=== PATIENT | male | born 1960 | race Caucasian/White ===

== ENCOUNTER → 2023-06-23 | Outpatient (CLI) | payer OTHER, SELFPAY ==
[2023-06-23 14:23] LABS: PSA,Total - Annual Screen 5.06 ng/mL (0.00-4.00)
== END | disposition home or self-care (01) ==
PROVIDERS: PCP Family Medicine; Referring Provider Nurse Practitioner; Visit Provider Nurse Practitioner
DX: Z12.5 Encounter for screening for malignant neoplasm of prostate (principal)
CPT/HCPCS: 36415; 84153; G0103

== ENCOUNTER → 2023-06-29 | Outpatient (CLI) | payer SELFPAY ==
--- NOTE | 2023-06-29 17:02 | CT_ITS ---
STUDY: CT ABDOMEN AND PELVIS WITH AND WITHOUT CONTRAST REASON FOR EXAM: Male, 63 years old. GROSS HEMATURIA over the past 3 months. RADIATION DOSAGE (If Supplied By Facility): CTDIvol = ( 21.72 ) mGy, DLP = ( 3237.52 ) mGycm TECHNIQUE: Transaxial images were obtained from the dome of the diaphragm to the symphysis pubis without oral contrast. IV 100mL Isovue-370 was administered. Sagittal and coronal images were reconstructed. Individualized dose optimization techniques were used for this CT. COMPARISON: None. FINDINGS: Minimal degree of the bibasilar atelectasis. The visualized portions of the heart are within normal limits. There is decreased attenuation of the liver consistent with steatosis. There is a 2.7 cm x 3 cm hypodensity within the peripheral enhancement and filling in suggestive of a hepatic hemangioma. This is in the medial aspect of the left lobe of the liver. Normal gallbladder and extrahepatic biliary system. Normal spleen. Normal pancreas. Normal bilateral adrenal glands. Punctate calculus in the lower pole calyx of the right kidney. Normal left kidney. Calcific plaque is seen in the intrarenal branches of the left kidney. This punctate calculus in the midpole calyx of the left kidney. There is a small hiatal hernia. Normal small intestine. There are multiple colonic diverticula consistent with diverticulosis. The appendix is visualized and appears normal. Normal abdominal aorta. Normal inferior vena cava. Normal retroperitoneum. Diffuse bladder wall thickening although the bladder is not completely distended. There is enlargement of the prostate gland. The prostate measures 5.1 cm x 6.5 cm. This causes indentation of the bladder base. Dense prosthetic calcifications are seen. There is a small umbilical hernia containing fat. There are mild degenerative changes of the visualized lumbar spine. CT/CT Abd/Pelvis W/WO Contrast IMPRESSION: Prostatic enlargement with indentation of the bladder base. Heterogeneous appearance of the prostate with dense calcifications. Fatty infiltration of the liver. Findings suggestive of a hemangioma and the medial aspect of the left lobe of the liver. Nonobstructive punctate bilateral intrarenal calculi. Electronically Signed: Chip Sweeney MD at 10:42 EST ,
[2023-06-29 17:24] LABS: CREATININE FINGERSTICK 1.1 mg/dL (0.70-1.30); EGFR FINGERSTICK > 60.0000 mL/min (>60)
--- OUTSIDE RECORDS SUMMARY | 2023-06-29 20:04 | XMS RPT_ITS | CCD ---
Author Name Unknown Address [address] [place] [address] Organization [facility] Care Team Providers Care Vp Mobile [employer] Name Role Phone Shaun, Vinod Unavailable Shaun, Vinod L Unavailable Unavailable Goodwin, Hector A Unavailable Unavailable Goodwin, Hector A Unavailable Unavailable Goodwin, Hector A Unavailable Unavailable Goodwin, Hector A Unavailable Unavailable Shaun, Vinod L Unavailable Unavailable Shaun, Vinod L Unavailable Unavailable Goodwin, Hector A Unavailable Unavailable Goodwin, Hector A Unavailable Unavailable Goodwin, Hector A Unavailable Unavailable Goodwin, Hector A Unavailable Unavailable Goodwin, Hector A Unavailable Unavailable Goodwin, Hector A Unavailable Unavailable Shaun, Vinod Primary Care Provider RADHA JO Attending Unavailable SHAUN, VINOD Primary Care Unavailable GOODWINHECTOR Attending Unavailable SHAUN, VINOD Primary Care Unavailable RADHA JO Admitting Unavailable RADHA JO Referring Unavailable SHAUN, VINOD Primary Care Unavailable JOSS RAPP Attending Unavailable SHAUN, VINOD Primary Care Unavailable GOODWINHECTOR Attending Unavailable SHAUN, VINOD Primary Care Unavailable GOODWINHECTOR Attending Unavailable SHAUN, VINOD Primary Care Unavailable GOODWINHECTOR Attending Unavailable SHAUN, VINOD Primary Care Unavailable GOODWINHECTOR Attending Unavailable SHAUN, VINOD Primary Care Unavailable GOODWINHECTOR Attending Unavailable SHAUN, VINOD Primary Care Unavailable GOODWINHECTOR Attending Unavailable SHAUN, VINOD Primary Care Unavailable Allergies Allergy Classification Reported Allergen(s) Allergy Type Date of Onset Reaction(s) Facility (1 source) No Known Medication Allergies; Translations: [No Known Medication Allergies] Propensity to adverse reactions to drug (disorder) [facility] Repository Medications Current Medications Medication Drug Class(es) Dates Sig (Normalized) Sig (Original) aspirin 81 mg delayed release oral tablet (12 sources) Nonsteroidal Anti-inflammatory Drug take 1 tablet by mouth once daily aspirin 81 MG EC tablet Take 81 mg by mouth daily. 0 Active atenolol 50 mg oral tablet (2 sources) beta-Adrenergic Consuelo Start: 08-09-2019 take 1 tablet by mouth once daily atenoloL (TENORMIN) 50 MG tablet Take 50 mg by mouth daily . 0 08/09/2019 Active atorvastatin 80 mg oral tablet (19 sources) HMG-CoA Reductase Inhibitor Start: 05-04-2017 atorvastatin (LIPITOR) 80 MG tablet Take 40 mg by mouth daily. 5 05/04/2017 Active doxazosin 2 mg oral tablet (19 sources) alpha-Adrenergic Consuelo Start: 04-28-2018 take 1 tablet by mouth once daily doxazosin (CARDURA) 2 MG tablet Take 2 mg by mouth nightly . 11 04/28/2018 Active Completed/Discontinued Medications Medication Drug Class(es) Dates Sig (Normalized) Sig (Original) acetaminophen 325 mg / oxyCODONE hydrochloride 5 mg oral tablet (4 sources) Opioid Agonist Start: 08-10-2017 End: 10-21-2017 take 1-2 mg by mouth every four hours as needed for pain oxyCODONE-acetami nophen (PERCOCET) 5-325 mg per tablet Indications: Traumatic tear of right rotator cuff, sequela 1-2 po q 4 hours prn post op pain Dx:s46.011s. 40 tablet 0 08/10/2017 10/21/2017 Discontinued amLODIPine 5 mg oral tablet (13 sources) Dihydropyridine Calcium Channel Consuelo Start: 04-07-2017 End: 06-21-2019 take 1 tablet by mouth once daily amLODIPine (NORVASC) 5 MG tablet Take 5 mg by mouth daily. 11 04/07/2017 06/21/2019 Discontinued (Discontinued by another clinician) pioglitazone (1 source) Peroxisome Proliferator Receptor alpha Agonist, Peroxisome Proliferator Receptor gamma Agonist, Thiazolidinedione End: 05-18-2017 PIOGLITAZONE HCL (ACTOS ORAL) Take by mouth. 05/18/2017 Discontinued Problems Active Problems Problem Classification Problem Date Documented Da te Episodic/Chronic Other connective tissue disease (5 sources) Tear of left rotator cuff; Translations: [Tear of left rotator cuff, unspecified tear extent, unspecified whether traumatic] Other nervous system disorders (20 sources) Ulnar neuropathy; Translations: [Carpal tunnel syndrome, right upper limb] Onset: 07-14-2017 07-14-2017 Chronic Other nervous system disorders (7 sources) Carpal tunnel syndrome of right wrist; Translations: [Carpal tunnel syndrome on right] Onset: 07-14-2017 07-14-2017 Other non-traumatic joint disorders (1 source) Shoulder pain; Translations: [Left shoulder pain, unspecified chronicity] Episodic Past or Other Problems Problem Classification Problem Date Documented Date Episodic/Chronic Joint disorders and dislocations; trauma-related (19 sources) Anterior dislocation of shoulder joint; Translations: [Anterior shoulder dislocation, right, subsequent encounter] Onset: 05-18-2017 05-18-2017 Episodic Other connective tissue disease (19 sources) Bursitis; Translations: [Bursitis] Onset: 05-18-2017 05-18-2017 Episodic Unclassified (14 sources) History of repair of musculotendinous cuff of shoulder; Translations: [S/P right rotator cuff repair] Onset: 08-18-2017 08-18-2017 Episodic Results Test Name Value Interpretation Reference Range Facil ity Vital Signs Date Time Vital Sign Value Performing Clinician Faci lity 06-21-2019 10:10-0500 BMI (Body Mass Index) 29.43 kg/m2 [facility] 06-21-2019 10:10-0500 Body weight 98.43 kg [facility] 06-21-2019 10:10-0500 Height 182.9 cm [facility] 06-08-2017 14:34-0500 BMI (Body Mass Index) 29.43 kg/m2 Hectorkimberlee Goodwin [facility] Work Phone: 06-08-2017 14:34-0500 Height 182.9 cm Hectorkimberlee Goodwin [facility] Work Phone: 06-08-2017 14:34-0500 Weight 98.43 kg Hectorkimberlee Goodwin [facility] Work Phone: 05-18-2017 15:06-0500 BMI (Body Mass Index) 29.43 kg/m2 Hectorkimberlee Goodwin [facility] Work Phone: 05-18-2017 15:06-0500 Height 182.9 cm Hector Goodwin [facility] Work Phone: 05-18-2017 15:06-0500 Weight 98.43 kg Hector Goodwin [facility] Work Phone: Encounters Encounter Date Encounter Type Care Provider Facility Start: 10-26-2019 End: 10-26-2019 Patient encounter procedure HECTOR GOODWIN [facility] Start: 09-05-2019 End: 09-05-2019 Patient encounter procedure HECTOR GOODWIN [facility] Start: 09-05-2019 End: 09-05-2019 Postop follow up visit related to original px Hector Goodwin Work Phone: [facility] Plan of Treatment Date Care Activity Detail Author Start: 04-12-2027 Tetanus vaccination [facility] Start: 10-17-2019 End: 10-17-2019 Follow-Up 10/17/2019 Follow-Up Sports Hector Orozco [place] [address] [phone] [facility] Start: 09-05-2019 End: 09-05-2019 Follow-Up 09/05/2019 Follow-Up Hector Koenig [place] [address] [phone] [facility] Start: 08-15-2019 End: 08-15-2019 Follow-Up 08/15/2019 Follow-Up Sports [place] [address] [phone] [facility] Start: 08-03-2019 End: 08-03-2019 Follow-Up 08/03/2019 Follow-Up [place]ector [place] [address] [phone] [facility] Start: 01-22-2019 Influenza vaccination given SEQUENTIAL INFLUENZA VACCINE (#1) [facility] Start: 05-31-2018 End: 05-31-2018 Ambulatory 05/31/2018 Office Visit Hector Koenig MD [address] [place] [address] [phone] [facility] Start: 01-22-2018 Influenza vaccination [facility] Start: 12-21-2017 End: 12-21-2017 Ambulatory 12/21/2017 Office Visit Hector Koenig MD [address] [place] [address] [phone] [facility] Start: 10-14-2017 End: 10-14-2017 Ambulatory 10/14/2017 Follow-Up Hector Koenig MD [address] [place] [address] [phone] [facility] Start: 09-16-2017 Ambulatory 09/16/2017 Hospital Encounter Hector Goodwin MD [address] [place] [address] [facility] Start: 09-14-2017 End: 09-14-2017 Ambulatory 09/14/2017 Follow-Up Hector Koenig MD [address] [place] [address] [phone] [facility] Start: 09-07-2017 Ambulatory 09/07/2017 Follow-Up Hector Koenig MD [address] [place], [place] [address] [address] [facility] Start: 08-03-2017 Ambulatory 08/03/2017 Surgical Consult [place]ector [place] [address] [facility] Start: 07-27-2017 End: 06-29-2018 EMG: EMG: Routine Nerve palsy Expected: 07/27/2017, Expires: 06/29/[address] [facility] Work Phone: Start: 07-27-2017 End: 06-29-2018 MR Shoulder Right Without Contrast MR Shoulder Right Without Contrast Routine Anterior shoulder dislocation, right, subsequent encounter Expected: 07/27/2017, Expires: 06/29/[address] [facility] Work Phone: Start: 07-20-2017 Ambulatory 07/20/2017 Office Visit Sports Medicine Hector Goodwin MD [address] [place] [address] [phone] [facility] Start: 06-29-2017 Ambulatory 06/29/2017 Office Visit Sports Medicine Hector Goodwin MD [address] [place] [address] [phone] [facility] Start: 06-08-2017 Ambulatory 06/08/2017 Office Visit Sports Medicine [place] [address] [phone] [facility] Start: 01-22-2017 Influenza vaccination SEQUENTIAL INFLUENZA VACCINE (#1) [facility] Work Phone: Start: 2010 Administration of herpes zoster vaccine Zoster Vaccines (1 of 2) [facility] Start: 1963 History and physical examination, annual for health maintenance Wellness Visit [facility] Start: 1960 Depression screening using PHQ-9 (Patient Health Questionnaire 9) score DEPRESSION SCREENING (PHQ9) [facility] Start: 1960 Hepatitis C antibody, confirmatory test HEPATITIS C SCREENING [facility] Start: 1960 HEPATITIS C SCREENING HEPATITIS C SCREENING [facility] Work Phone: Start: 1960 Prostate specific antigen measurement PSA Level [facility] Start: 1960 Screening colonoscopy COLONOSCOPY [facility] Work Phone: Start: 1960 Screening for malignant neoplasm of colon Colorectal Cancer Screening: Colonoscopy [facility] Start: 1960 Tetanus vaccination TETANUS EVERY [address] [facility] Work Phone: Joint Injection/Arthrocentesis Joint Injection/Arthrocentes is Routine Bursitis of other bursa of right knee 05/18/2017 4:56 PM EST [facility] Work Phone: End: 06-21-2020 MR Shoulder Left Without Contrast MR Shoulder Left Without Contrast Imaging Routine Tear of left rotator cuff, unspecified tear extent, unspecified whether traumatic 1 Occurrences starting 06/21/2019 until 06/21/2020 [employer] Payers Date Payer Category Payer Self-pay 2017 Unknown 1960 Unknown [id number] 2.16. [id number] 1960 Unknown [id number] 2.16. [id number] 1960 Unknown [id number] 2.16. [id number] 1960 Unknown [id number] 2.16. [id number] 1960 Unknown [id number] 2.16. [id number] 1960 Unknown [id number] 2.16. [id number] 1960 Unknown [id number] 2.16. [id number] 1960 Unknown [id number] 2.16. [id number] 1960 Unknown [id number] 2.16. [id number] 1960 Unknown [id number] 2.16. [id number] Self-pay [id number] Social History Date Type Detail Facility Start: 10-21-2017 End: 09-05-2019 Tobacco smoking status NHIS Never smoker [facility] Work Phone: Sex Assigned At Not on file [place] [facility] Work Phone: Start: 06-21-2019 End: 09-05-2019 Alcohol intake Ex-drinker (finding) [facility] Exposure to SARS-CoV -2 (event) Unable to assess [facility] Assessments Diagnosis S/P right rotator cuff repai r - Primary Diagnosis S/P right rotator cuff repai r - Primary Diagnosis ERRONEOUS ENCOUNTER--DISREGA RD - Primary Pre-op testing Unspecified pre-operative examination Traumatic rotator cuff tear, right, sequela Diagnosis S/P right rotator cuff repai r - Primary Diagnosis Anterior shoulder dislocatio n, right, subsequent encounter - Primary Nerve palsy Bursitis of other bursa of r ight knee Traumatic rotator cuff tear, right, sequela Diagnosis Ulnar neuropathy at elbow, r ight - Primary Nerve palsy Carpal tunnel syndrome on ri ght Carpal tunnel syndrome Diagnosis Anterior shoulder dislocatio n, right, subsequent encounter - Primary Nerve palsy Diagnosis Bursitis of other bursa of r ight knee - Primary Anterior shoulder dislocatio n, right, subsequent encounter Diagnosis Bursitis of other bursa of r ight knee - Primary Anterior shoulder dislocatio n, right, subsequent encounter Diagnosis S/P right rotator cuff repai r - Primary Diagnosis Tear of left rotator cuff, unspecified tear extent, unspecified whether traumatic Diagnosis Tear of left rotator cuff, unspecified tear extent, unspecified whether traumatic Diagnosis Left shoulder pain, unspecified chronicity Summary Purpose Family History No Family History Records FoundNo Family History Records FoundNo Family History Records FoundNo Family History Records Found Advance Directives No Advanced Directives Records FoundDocuments on File Type Date Recorded Patient Wrapper Opener Expl anation Advance Directives and Living Will Documents on File Type Date Recorded Patient Wrapper Opener Expl anation Advance Directives and Living Will Reason for Referral Status Reason Specialty Diagnoses / Procedures Referred By Contact Referred To Contact Pending Review Diagnoses Tear of left rotator cuff, unspecified tear extent, unspecified whether traumatic Procedures MR Shoulder Left Without Contrast Hector Goodwin MD [address] [place] [address] History of Present Illness * Hector Goodwin MD - 06/21/2019 2:35 PM EST Dictation on: 06/21/2019 2:38 PM by: HECTOR GOODWIN [[id number]] documented in this encounter* Hector Goodwin MD - 06/29/2019 10:07 AM EST Peña is seen for followup of his left shoulder pain and injury. He had fallen 6 months ago. Does not report having much pain before that. Has been fully active. He has had his MRI. On exam, he has full range of motion of his left shoulder with marked pain. X-rays were obtained last visit. As I review his MRI, he has had a massive rotator cuff tear with retraction. He has a subscapularis muscle tear and tendon avulsion from the lesser tuberosity with dislocation of the biceps. IMPRESSION Massive tear, left rotator cuff tendon, with superior migration of the humeral head, supraspinatus tendon, infraspinatus, and subscapularis all involved. PLAN I have discussed the options with him and explained to him that this may very well not be repairable. He just feels like he has to do something. He does not want a steroid injection. He is only 59. Ihave decided at this point in time, it would be reasonable to perform arthroscopy. I told him if itjust did not look like there is anything I could repair, we would just performed debridement. If tissues are repairable, it would be a large open repair with subscapularis, biceps, and supraspinatus and infraspinatus repair attempts. With this shoulder and his surgery like this, the results of healing of his repair would be 50% or less. Debridement, of course, would not give long-term stability, but may help his symptoms and at any rate, reverse shoulder replacements would probably be the ultimate procedure. He seems to understand this and has consented. PAST HISTORY He has had hypertension. ALLERGIES None. MEDICATIONS Aspirin, Lipitor, Cardura, Prinivil, K-Dur, and Maxzide. REVIEW OF SYSTEMS No ongoing chest pain, shortness of breath. No PND, orthopnea. No bowel or bladder symptoms, visualproblems, cardiac issues, cancers, or others. PHYSICAL EXAM General: Reveals a pleasant, white male in no acute distress. HEENT: Normal. Chest: Clear. Cardiac: Regular rhythm. No murmur. No gallop. Abdomen: Soft, nontender. No organomegaly. Neurological: He is neurovascularly intact. Extremities: Examination of his left shoulder reveals he has full passive motion but marked weakness and pain and crepitation with motion. I did also discuss other conservative measures, such as steroid injections and physical therapy without surgery or repair. He seems to understand all this and has consented and requested the surgery as described. documented in this encounter* Radha Jo CNP - 07/12/2019 7:57 AM EST . documented in this encounter* Jane Nuñez LPN - 07/27/2019 4:20 PM EST Peña stopped in today w concerns about his hand swelling and a rash on his chest wall and down his upper arm. The rash does itch slightly, it does look like it is where surgery cleansed his shoulder/arm area. I did advise taking Benadryl po for the itching, he denies any SOB of difficulty breathing. He has showered several times to wash off the area. I did look at his hand, it is slightly swollen today, pink warn, dry, good ROM of fingers and hand. He did have his shoulder immobilizer on, I did tell him he could take his hand out of the immobilizer and elevate his hand above his elbow to reduce the swelling and he does understand. documented in this encounter* Hector Goodwin MD - 08/03/2019 11:30 AM EDT Dictation on: 08/03/2019 11:30 AM by: HECTOR GOODWIN [[email or web address]] documented in this encounter* Hector Goodwin MD - 08/15/2019 9:53 AM EDT Dictation on: 08/15/2019 9:53 AM by: HECTOR GOODWIN [[id number]] documented in this encounter* Hector Goodwin MD - 09/05/2019 10:25 AM EDT Dictation on: 09/05/2019 10:25 AM by: HECTOR GOODWIN [[email or web address]] documented in this encounter Procedure Findings Note Post Operative Note: PreOp D iagnosis: Complete left rotator cuff tear Post- Procedure Diagnosis: Same Procedure: 1. Arthroscopic assisted mini open left rotator cuff repair with augmentation using biceps tendon and biceps tenodesis 2. 3. 4. 5. Surgeon: Hector Goodwin Resident/Fellow/Other Diesel Truck Driver: None Estimated Blood Loss (mL): 20 Specimen: no Complications: None Findings: Severe retracted tear as suspected with degenerative arthritis Operative Report Dictated: Dictation: not applicable - note contains Operative Report Note Recipients: Vinod Dunn MD - [id number] [] Hector Goodwin MD - [id number] [PREFERRED] Operative Report: Patient was taken the operating room and placed in the supine position, then beachchair after given general anesthetic and interscalene block to the left shoulder. Posterior portal was established and I put the scope in the posterior portal at once I could see massive superior rotator cuff tear as suspected. There was a rim of tissue. It was retracted ba (more content not included)... Additional Source Comments (unrecognized sect ion and content) No Status Records FoundNo Status Records FoundNo Status Records FoundNo Status Records Found INFORMATION SOURCE (unrecogn ized section and content) DATE CREATED AUTHOR AUTHOR'S ORGANIZ ATION 02/07/2018 [facility] DATE CREATED AUTHOR AUTHOR'S ORGANIZ ATION 07/31/2019 [facility] DATE CREATED AUTHOR AUTHOR'S ORGANIZ ATION 10/26/2019 [facility] Reason for Visit (unrecogniz ed section and content) Reason Comments Follow-up Review MRI Reason Comments Pain Reason Comments Follow-up Suture / Staple Removal Reason Comments Follow-up FOR RECORDS PERTAINING TO PATIENTS WHO ARE OR HAVE BEEN ENROLLED IN A CHEMICAL DEPENDENCY/SUBSTANCEABUSE PROGRAM, SOME INFORMATION MAY BE OMITTED. This clinical summary was aggregated from multiple sources. Caution should be exercised in using it in the provision of clinical care. This summary normalizes information from multiple sources, and as a consequence, information in this document may materially change the coding, format and clinical context of patient data. In addition, data may be omitted in some cases. CLINICAL DECISIONS SHOULD BE BASED ON THE PRIMARY CLINICAL RECORDS. [facility] [employer] [facility]. provides no warranty or guarantee of the accuracy or completeness of information in this document.
== END | disposition home or self-care (01) ==
PROVIDERS: PCP Family Medicine; Referring Provider Urology; Visit Provider Urology
DX: R31.0 Gross hematuria (principal)
CPT/HCPCS: 74178; Q9967; A4216

== ENCOUNTER → 2024-01-10 | Outpatient (CLI) | payer OTHER, SELFPAY ==
[2024-01-10 12:03] LABS: PSA,Total - Annual Screen 2.94 ng/mL (0.00-4.00)
== END | disposition home or self-care (01) ==
PROVIDERS: PCP Family Medicine; Referring Provider Nurse Practitioner; Visit Provider Nurse Practitioner
DX: R97.20 Elevated prostate specific antigen [PSA] (principal)
CPT/HCPCS: 36415; 84153; G0103

== ENCOUNTER → 2025-01-15 | Outpatient (CLI) | payer SELFPAY ==
[2025-01-15 12:05] LABS: PSA,Total- Diagnostic 2.90 ng/mL (0.00-4.00)
== END | disposition home or self-care (01) ==
LOC: LAB 09:58
PROVIDERS: PCP Family Medicine; Referring Provider Nurse Practitioner; Visit Provider Nurse Practitioner
DX: R97.20 Elevated prostate specific antigen [PSA] (principal)
CPT/HCPCS: 36415; 84153